=== PATIENT | female | born 1970 | race Caucasian/White ===

== ENCOUNTER 2017-09-09 22:17 | Emergency (ER) | payer BC, OTHER ==
--- NOTE | 2017-09-09 22:30 | EDPHY ---
H & P Time Seen by Provider: 09/09/17 22:25 HPI/ROS: Chief complaint: Left hand laceration History of present illness: This is a 46-year-old female who presents to the emergency department for evaluation of a laceration to the webspace between her left thumb and pointer finger. Just prior to arrival she was cutting a box with a pair of scissors when it slipped and cut her. There has been mild pain. Bleeding has been controlled with a dressing. She denies abnormal coolness or paresthesias in the hand. She is moving the hand without difficulty. Her tetanus is up-to-date. Smoking Status: Never smoked Physical Exam: General: Alert, nontoxic Skin: There is a 1 cm laceration to the interdigital webspace between the thumb and pointer finger of the left hand. Exploration does not reveal foreign body or deep structure injury. Musculoskeletal: Patient moving all joints in all digits in all low in the left hand without difficulty. Vascular: Capillary refill brisk in all digits of the left hand. Radial pulse 2 +. Neurologic: Sensation intact in all digits of the left hand. Constitutional: Initial Vital Signs Temperature (C) 36.7 C 09/09/17 22:19 Heart Rate 73 09/09/17 22:19 Respiratory Rate 18 09/09/17 22:19 Blood Pressure 125/84 H 09/09/17 22:19 O2 Sat (%) 95 09/09/17 22:19 O2 Delivery Mode Room Air Allergies/Adverse Reactions: No Known Allergies Allergy (Unverified 09/09/17 22:19) MDM/Departure - MDM Procedures: Procedure: Laceration repair. Verbal consent was obtained from the patient. The 1 cm laceration on the left hand was anesthetized in the usual fashion. The wound was irrigated, draped and explored to its base with a gloved finger. There were no deep structures involved. No tendon injury was identified. The wound was repaired with 5 0 Prolene, 3 simple interrupted sutures. The wound repair was simple. The procedure was performed by myself. ED Course/Re-evaluation: Patient seen under the supervision of my secondary supervising physician Dr. Ahmet Carrera. Patient presents for a laceration to her left hand. The hand appears neurovascularly intact. She has good musculoskeletal control. The wound has been cleaned, repaired and dressed. Her tetanus is already up-to-date. She is discharged home. Home care is discussed. She is asked to follow up with her primary care doctor this week for recheck. Return precautions were given. The patient voiced understanding and agreement with plan. Differential Diagnosis: Included but not limited to laceration, deep structure injury, foreign body contamination - Depart Disposition: Home, Routine, Self-Care Clinical Impression: Hand laceration Qualifiers: Encounter type: initial encounter Foreign body presence: without foreign body Laterality: left Qualified Code(s): S61.412A - Laceration without foreign body of left hand, initial encounter Condition: Good Instructions: Care For Your Stitches (ED), Laceration (ED), Acute Wounds (ED) Additional Instructions: Follow-up with her primary care doctor this week for recheck Stitches to be removed in 7-10 days If symptoms worsen or new symptoms develop return to the emergency room for recheck Referrals: NONE *PRIMARY CARE P,. [Primary Care Provider] - As per Instructions [facility],. [Clinic] - As per Instructions
[2017-09-09] MEDS ORDERED: TDAP ADULT 0.5 ML INJ (BOOSTRIX) IM ONE (23:00)
[2017-09-09 23:04] VITALS: BP 125/75
== END 2017-09-09 23:05 | disposition home or self-care (01) ==
PROC: 0HQGXZZ Repair Left Hand Skin, External Approach (ICD-10-PCS; principal; 2017-09-09)
DX: S61.412A Laceration without foreign body of left hand, initial encounter (principal); W27.2XXA Contact with scissors, initial encounter; Y99.8 Other external cause status; Y93.89 Activity, other specified